=== PATIENT | female | born 1995 | race Two or more races ===

== ENCOUNTER 2025-02-17 03:36 | Inpatient (IN) ==
[2025-02-17] MEDS ORDERED: OXYTOCIN 30 UNITS/NSS 30 UNITS/500 ML BAG IV PRN ×2 (04:42→14:55)
[2025-02-17] MEDS ORDERED: LIDOCAINE 1% LOCAL 20 ML VIAL INFIL PRN (04:42)
--- NOTE | 2025-02-17 04:48 | History & Physical Report ---
Date of Service February 17, 2025 Assessment & Plan (1) Supervision of normal intrauterine in primigravida: Plan: 30 yo G1 at 38 4/7 wga presents w/ srom VSS Fetus cat 1 Labor - will recheck in a few hours to see if made change, discussed may need pitocin if ctx not causing change GBS neg epidural prn History of Present Illness Chief Complaint: ctx, lof Primary Care Provider: NO PCP 30 yo G1 at 38 4/7 wga presents w/ ctx and LOF. Discharge changed around 130am, became more watery w/ pink/red and ctx worsened. 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 Allergies Allergy/AdvReac Type Severity Reaction Status Date / Time No Known Allergies Allergy Verified 02/17/25 03:50 Home Medications Medication Instructions Recorded Confirmed Type doxylamine succinate 25 mg tablet 25 mg PO Q6H PRN Unknown 08/19/24 02/11/25 History (Unisom (doxylamine)) ferrous sulfate 325 mg (65 mg 325 mg PO DAILY 02/11/25 02/11/25 History iron) tablet (iron) vit 115-iron fum 29 mg 1 tab PO DAILY 02/11/25 02/11/25 History iron-folic acid 1 mg-dss 25 mg tablet Patient History Surgical History No history of previous surgery Family History Mother Diabetes Father Heart disease Social History Smoking Status: Never smoker Second Hand Exposure: No; Do You Dip or Chew Tobacco: No; Hx Alcohol Use: No Hx Substance Use: No Preferred Language: Kinyarwanda [employer] 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 Beliefs That Will Affect Care: None marital status: marital status details: Ish [phone]) [phone] Current Living Situation: Spouse Current Living Situation Comment: lives with spouse current occupational status: unemployed Other Information That Helps Us Care for You: No Feels Safe at Home: Yes Safety Concerns: Feels Safe At This Time Assistive Devices: None Physical Exam Genitourinary: OB Exam Abdomen: + vertex Manual OB Exam: + cervical dilation (2-3), + cervical effacement 70%, + station -2 and + amniotic fluid (+pooling, nitrazine, ferning) OB Exam Monitor Tracing: + external FHT monitor used, + external uterine monitor used (q3-7) and + category I (135/mod/+accel/-decel) Results & Data Vital Signs (Past 12 Hours) Vital Signs Temp Pulse Resp BP 02/17/25 04:07 93 H 110/72 02/17/25 03:58 98.4 F 20 Laboratory Results OB Labs: Blood Type O Negative 08/21/24 Antibody Screen NEGATIVE 12/10/24 Hgb 10.3 g/dl (12.0-16.0) L 01/14/25 Hct 31.5 % (37.0-47.0) L 01/14/25 MCV 83.7 fL (80.0-100.0) 08/21/24 Plt Count 186 K/uL (130-400) 08/21/24 Rubella IgG Antibody Immune (Immune) 08/21/24 Treponema pallidum Ab Negative (Negative) 12/10/24 Hep Bs Antigen Negative (Negative) 08/21/24 Hepatitis C Antibody Negative (Negative) 08/21/24 HIV 1&2 Ab/P24 Ag 4thGn Negative (Negative) 08/21/24 Glucose 1 Hr 50 gm 123 mg/dl (70-130) 12/10/24 OB Optional Labs: Chlamydia trachomatis RNA Not Detected (NotDetected) 08/21/24 Neisseria gonorrhoeae RNA Not Detected (NotDetected) 08/21/24 GBS neg Coding Level of Care Code None Diagnoses Supervision of normal intrauterine in primigravida Z34.00
[2025-02-17 05:44] LABS: Hematocrit (blood only) 31.5 % (37.0-47.0); Hemoglobin 10.6 g/dl (12.0-16.0); Mean Corpuscular Hemoglobin 28.2 pg (25.0-34.0); Mean Corpuscular Hgb Conc 33.7 g/dL (32.0-36.0); Mean Corpuscular Volume 83.8 fL (80.0-100.0); Mean Platelet Volume 10.6 fL (9.4-12.4); Platelet Count 190 K/uL (130-400); RDW Coefficient of Variation 13.2 % (11.5-14.5); RDW Standard Deviation 40.3 fL (36.4-46.3); Red Blood Count 3.76 M/uL (4.20-5.40); White Blood Count 9.84 K/ul (4.8-10.8)
--- NOTE | 2025-02-17 07:34 | Labor Progress Brief Note ---
Date of Service February 17, 2025 Subjective Ctx painful but ok Assessment & Plan (1) Supervision of normal intrauterine in primigravida: Plan: 30 yo G1 at 38 4/7 wga presents w/ srom VSS Fetus cat 1 Labor - cervix unchanged, discussed pitocin and is agreeable GBS neg epidural prn Admission and Anticipated Discharge Date Admission Date: February 17, 2025 Physical Exam Genitourinary: Manual OB Exam: + cervical dilation (2-3), + cervical effacement 70% and + station -2 OB Exam Monitor Tracing: + external FHT monitor used, + external uterine monitor used (q5-7) and + category I (140/mod/+accel/-decel) Results & Data Vital Signs (Past 12 Hours) Vital Signs Temp Pulse Resp BP 02/17/25 07:00 90 110/64 02/17/25 04:07 93 H 110/72 02/17/25 03:58 98.4 F 20 Coding Level of Care Code None Diagnoses Supervision of normal intrauterine in primigravida Z34.00
[2025-02-17] MEDS: LACTATED RINGER'S 1,000 ML IV PRN (08:12)
[2025-02-17] MEDS: OXYTOCIN 30 UNITS/NSS 30 UNITS/500 ML BAG IV PRN (08:14)
--- NOTE | 2025-02-17 09:34 | Communication Note ---
Date of Service: February 17, 2025 pt laying in bed. denies concerns. aware i am assuming care. fhts categ 1. toco irregular. pit at 4 will cont to increase pit to achieve labor pattern.
[2025-02-17] MEDS ORDERED: LIDOCAINE 2%/EPINEPHRINE 1:200,000 20 ML PF ONE (12:20)
[2025-02-17] MEDS ORDERED: ePHEDrine sulfate 50 MG/ML AMP ONE (12:20)
[2025-02-17] MEDS ORDERED: SODIUM CHLORIDE 0.9% PF INJ 10 ML VIAL ONE (12:20)
[2025-02-17] MEDS: fentANYL 2 MCG/ML BUPIVacaine 0.125%-NSS 100ML BAG ONE (12:52)
[2025-02-17] MEDS: BUPIVACAINE 0.25% PF 30 ML VIAL ONE (12:53)
[2025-02-17] MEDS: fentaNYL citrate PF 100 MCG/2 ML VIAL ONE (12:53)
[2025-02-17] MEDS ORDERED: SODIUM CHLORIDE 0.9% PF INJ 10 ML VIAL EPI STA (12:56)
[2025-02-17] MEDS ORDERED: SODIUM CHLORIDE 0.9% PF INJ 10 ML VIAL EPI PRN (12:56)
[2025-02-17] MEDS ORDERED: LIDOCAINE 2% MPF LOCAL 5 ML VIAL EPI PRN (12:56)
[2025-02-17] MEDS ORDERED: ROPIVACAINE 0.5% PF 5 MG/ML 20 ML VIAL EPI PRN (12:56)
[2025-02-17] MEDS ORDERED: ePHEDrine sulfate 50 MG/ML AMP IV PRN (12:56)
[2025-02-17] MEDS ORDERED: NALBUPHINE HCL INJ 10 MG/ML AMP IV PRN (12:56)
[2025-02-17] MEDS ORDERED: NALOXONE HCL 1 MG in SODIUM CHLORIDE 0.9% 1,000 ML IV PRN (12:56)
[2025-02-17] MEDS ORDERED: BUPIVACAINE 0.25% PF 30 ML VIAL EPI STA (12:56)
[2025-02-17] MEDS ORDERED: NALOXONE HCL 0.4 MG/1 ML VIAL/CARP IV PRN (12:56)
[2025-02-17] MEDS ORDERED: diphenhydrAMINE 50 MG/ML VIAL IV PRN (12:56)
[2025-02-17] MEDS ORDERED: METOCLOPRAMIDE HCL 20 MG in SODIUM CHLORIDE 0.9% 50 ML IV PRN (12:56)
[2025-02-17] MEDS ORDERED: fentaNYL citrate PF 100 MCG/2 ML VIAL EPI STA (12:56)
[2025-02-17] MEDS ORDERED: fentaNYL citrate PF 100 MCG/2 ML VIAL EPI PRN (12:56)
[2025-02-17] MEDS ORDERED: BUPIVACAINE 0.25% PF 30 ML VIAL EPI PRN (12:56)
[2025-02-17] MEDS ORDERED: fentANYL 2 MCG/ML BUPIVacaine 0.125%-NSS 100ML BAG EPI PRN (12:56)
[2025-02-17] MEDS ORDERED: LIDOCAINE 2%/EPINEPHRINE 1:200,000 20 ML PF EPI STA (12:56)
[2025-02-17] MEDS ORDERED: ONDANSETRON INJ 2 MG/ML 2 ML VIAL IV PRN (12:56)
--- NOTE | 2025-02-17 12:56 | Anesthesiology Consultation ---
Date of Service February 17, 2025 Assessment & Plan Chart Review Chart Review: Acceptable Risk for Labor Epidural Consults Requested none ASA ASA2 Proposed Anesthesia Anesthesia Type: Labor Epidural Risk / Benefits Reviewed With: PT / POA / Parent / Guardian, Accepts Plan and Informed Consent Obtained History Height/Weight Height: 5 ft 5 in Weight: 76.612 kg Allergies Allergy/AdvReac Type Severity Reaction Status Date / Time No Known Allergies Allergy Verified 02/17/25 03:50 Medications Home Medications Medication Instructions Recorded Confirmed Last Taken doxylamine succinate 25 mg tablet 25 mg PO Q6H PRN Unknown 08/19/24 02/17/25 02/16/25 (Unisom (doxylamine)) ferrous sulfate 325 mg (65 mg 325 mg PO DAILY 02/11/25 02/17/25 02/16/25 iron) tablet (iron) vit 115-iron fum 29 mg 1 tab PO DAILY 02/11/25 02/17/25 02/16/25 iron-folic acid 1 mg-dss 25 mg tablet Active Medications Generic Name Dose Route Start Last Admin Trade Name Bernardinoq PRN Reason Stop Dose Admin Lactated Ringer's 1,000 mls @ 125 mls/hr 02/17/25 04:42 02/17/25 10:41 Lr IV 02/19/25 04:41 125 mls/hr .Q8H PRN Administration L&D Protocol Protocol Oxytocin 30 units in 500 mls @ 6 mls/hr 02/17/25 07:26 02/17/25 10:00 Pitocin 30 Units/Nss IV 02/19/25 07:25 0.36 units/hr .Q24H PRN 6 mls/hr Labor Induction/Augmentation Titration Protocol 0.36 UNITS/HR NPO Date Last Intake of Fluids: 02/17/25 Time Last Intake of Fluids: 10:00 Date Last Intake of Solids: 02/17/25 Time Last Intake of Solids: 00:01 Last Intake of Solids Comment: Assume full Exercise / Class Metabolic Activity II 4-5 Yardwork/Stairs/Walk up hill Past Family History Family History Mother Diabetes Father Heart disease Past Surgical History Surgical History No history of previous surgery Past Anesthesia History No Hx of Anesthesia Complications and No Family Hx of Anesthesia Complications History of PONV No Hx of PONV and No Hx of Motion Sickness Social History Smoking Status: Never smoker Do You Dip or Chew Tobacco: No Hx Alcohol Use: No Hx Substance Use: No substance use type: does not use Physical Exam Vital Signs Last Vital Signs Temp 36.6 C 02/17/25 12:00 Pulse 96 H 02/17/25 12:29 Resp 20 02/17/25 12:00 BP 130/76 02/17/25 12:01 Pulse Ox 90 02/17/25 12:29 ENMT Mouth: no TMJ abnormality Thyromental Distance: > or= 3.5 Finger Breadths Mallampati Class: II Neck normal visual inspection and trachea midline; neck extension not limited Respiratory normal respiratory effort Auscultation: lungs clear to auscultation bilaterally Cardiovascular Rate/Rhythm: regular rate and regular rhythm Heart Sounds: no murmur Musculoskeletal Spine: normal cervical ROM Extremities: full ROM of extremities Neurologic moves all extremities Psychiatric Orientation: alert and oriented x 3 Testing Laboratory Results 02/17/25 05:23
[2025-02-17] MEDS: miSOPROStoL 200 MCG TAB PR ONE (14:25)
--- NOTE | 2025-02-17 14:45 | Delivery Summary ---
Vaginal Delivery Summary Date of Service February 17, 2025 Vaginal Delivery Summary and 2nd Degree LAC The patient dilated to complete and pushed to deliver a viable male infant Apgars 8 and 9 via over 2nd degree perineal laceration. Mouth and nose bulb suctioned at perineum. Shoulders and body delivered with ease. Infant was vigorous and crying at . Cord clamped at 30 seconds of life and to maternal abdomen where the cord was then doubly clamped and cut. Placenta delivered spontaneously and intact, three-vessel cord. Hemostasis not achieved with dilute pitocin and uterine massage and drainage of the bladder for approximately 50 cc under sterile conditions. Laceration repaired in layers with 2-0 and 3-0 vicryl. Cervix and sulci intact. QBL 617 cc. Mother and baby stable in recovery. [facility] [place] Vaginal Delivery Charge Delivery Type Details: and 2nd Degree LAC
[2025-02-17] MEDS ORDERED: oxyCODONE/ACETAMINOPHEN 5mg/325mg TAB PO PRN (14:55)
[2025-02-17] MEDS ORDERED: bisacodyL 10 MG SUPP PR PRN (14:55)
[2025-02-17] MEDS ORDERED: HYDROCORTISONE ACETATE 25 MG SUPP PR PRN (14:55)
[2025-02-17] MEDS ORDERED: DIPHTHER/TETAN/PERTUS Vaccine (Tdap, Adol/Adult) 0.5mL IM ONE (14:55)
--- NOTE | 2025-02-17 15:03 | Anesthesia Procedure Note ---
Date of Service February 17, 2025 Anesthesia Post Epidural Note Vital Signs Vital Signs: Temp Pulse Resp BP Pulse Ox 37.2 C 87 16 100/58 L 87 L 02/17/25 14:40 02/17/25 14:47 02/17/25 14:40 02/17/25 14:47 02/17/25 14:08 Pain Intensity Lower Abdomen: Pain Intensity: 10 Notes Mental Status: alert / awake / arousable and participated in evaluation Patient Amnestic to Procedure: No Nausea / Vomiting: adequately controlled Pain: adequately controlled Airway Patency, RR, SpO2: stable & adequate BP & HR: stable & adequate Hydration State: stable & adequate Neuraxial Anesthesia: was administered and sensory block is resolving Anesthetic Complications: no major complications apparent and Pt Satisfied with anesthetic care Epidural: Removed without complications and With tip intact
[2025-02-17] MEDS: BENZOCAINE 20% SPRY 85 APPLN/85 GM CAN EXT PRN (17:07)
[2025-02-17] MEDS: IBUPROFEN 600 MG TAB PO PRN (17:07)
[2025-02-17] MEDS: ACETAMINOPHEN 325 MG TAB PO PRN (21:13)
[2025-02-17] MEDS: DOCUSATE SODIUM 100 MG CAP PO SCH (21:13)
[2025-02-18 06:13] LABS: Hematocrit (blood only) 26.5 % (37.0-47.0); Hemoglobin 9.1 g/dl (12.0-16.0)
--- NOTE | 2025-02-18 06:56 | Obstetrical Progress Note ---
Date of Service February 18, 2025 Assessment & Plan (1) Encounter for assessment: Plan: Patient is PPD 1 s/p and doing well - Eating well, voiding well, ambulating well - vitals reviewed and within normal limits - pain well controlled with analgesics - OOB, ambulation, diet progression as tolerated - Blood type: O-, GBS neg, rubella immune - Plan to discharge tomorrow - After discharge, 6 week follow up with [facility] OBGYN Admission and Anticipated Discharge Date Admission Date: February 17, 2025 Supervising Physician Co-Signing Physician Notes Resident Physician Supervision Note: I was present with Dr. Montoya during the history and exam. I discussed the case with the resident and agree with the findings and plan as documented in the note. Any exceptions or clarifications are listed here: stable, notes pain in bottom and right leg with ambulation. Getting up independently to void per nurses although calls for them every time. breast and bottle feeding. needs rhogam. eating. abd soft ff 2 down nt, ext nt calves. ppd#1 s/p , enc pain meds and ambulation. can use walker if needed. discussed routine recovery with laceration and expectations for bleeding ongoing. Documented By: Lilia Esteves MD, FACOG Subjective 30 yo post- day 1 s/p Ambulation: ambulating normally Voiding: no voiding problems Passing Gas:: Yes Diet Tolerance:: regular diet Lochia:: Small Feeding Type:: bottle feeding and attempting breast feeding Current Pain Level: 9/10 majority is lower abdominal pain combined with upper thigh cramps Resting comfortably this AM in NAD. Denies EDDY, CP, SOB, N/V/D, LE pain/swelling. Physical Exam Physical Exam: General: patient resting comfortably, NAD, non-toxic in appearance, answers questions appropriately. Skin: warm, dry, intact HEENT: NC/AT, anicteric sclera, conjunctiva without injection, moist mucus membranes. Heart: +S1/S2, regular, no m/r/g Lungs: equal air entry bilaterally, no rales/rhonchi/wheezes Abd: +BS, soft, NT/ND, uterine fundus firm at umbilicus Ext: warm, no clubbing/cyanosis or edema Neuro: nonfocal, speech intact, no facial droop, moving all extremities. Results & Data Vital Signs (Past 12 Hours) Vital Signs Temp Pulse Resp BP Pulse Ox O2 Del Method 02/18/25 03:05 36.9 C 74 16 98/60 L 99 Room Air 02/17/25 23:10 36.8 C 76 18 105/68 98 Room Air 02/17/25 19:30 37.0 C 80 16 91/58 L 99 Room Air Resident Activity Tracking Resident Involvement: Resident Care Provided Care Provided: OB Delivery
[2025-02-18] MEDS: PRENATAL VITAMIN 1 TAB PO SCH (18:45)
[2025-02-18] MEDS: bisacodyL 5 MG TABEC PO SCH (20:42)
--- NOTE | 2025-02-19 08:23 | Obstetrical Progress Note ---
Date of Service February 19, 2025 Assessment & Plan (1) Encounter for assessment: Day 2 status post vaginal delivery. Patient doing well and stable for discharge. visit type: exam and care immediately after delivery Qualified Code(s): Z39.0 - Encounter for care and examination of mother immediately after delivery Subjective Ambulation: ambulating normally Voiding: no voiding problems Passing Gas:: Yes Diet Tolerance:: regular diet Lochia:: Moderate Physical Exam Constitutional WD/WN, vitals as above Respiratory normal respiratory effort; no respiratory distress and no labored breathing Cardiovascular Extremities: no calf tenderness Gastrointestinal (Abdomen) Inspection/Auscultation: abdomen normal to inspection; abdomen not distended Percussion/Palpation: abdomen soft; abdomen nontender, no guarding and abdomen not rigid Genitourinary OB Exam Abdomen: + fundal height Fundus: + firm and + relation to umbilicus (Below); not tender or not boggy Results & Data Vital Signs (Past 12 Hours) Vital Signs Temp Pulse Resp BP O2 Del Method 02/18/25 23:03 36.8 C 96 H 14 99/77 L Room Air 02/18/25 20:45 36.9 C 97 H 16 101/79 Room Air
[2025-02-19 09:17] VITALS: BP 116/74; PULSE 81; RESP 16; TEMP 97.9; O2SAT 99
== END 2025-02-19 15:40 | disposition home or self-care (01) | DRG 807 ==
LOC: OPB 03:36 → 4S1 03:45 → 4E2 17:16